=== PATIENT | female | born 1980 | race Caucasian/White ===

== ENCOUNTER 2018-12-06 16:50 | Outpatient (CLI) | payer OTHER ==
[~2018-12-06] VITALS: Ht 165.1 cm; Wt 74.0 kg
[~2018-12-06 16:50] MED LIST: CEPH-443 PO; HYDR-3498 PO; PREN1TAB49 PO
[2018-12-06 17:20] VITALS: Ht 165.1 cm; Wt 74.0 kg
[2018-12-06 17:22] VITALS: BP 96/54; PULSE 87; RESP 20
--- NOTE | 2018-12-06 19:19 | PN ---
Triage Information Date/Time December 06, 2018 Reason for visit: Abd/pelvic pain Weeks of Gestation 23w 2d /Para 8/4 Diabetes: none Hypertention: none Additional information Pt's battery in her car and she had to take the battery out and carry it across a parking lot and she started to have a lot of abdominal pain that didn't resolve so she came in. No bleeding. +FM. PMHx: none. PSHx: none. NKDA Objective Vital Signs Date Temp Pulse Resp B/P (MAP) Pulse Ox O2 O2 Flow FiO2 Time Delivery Rate 12/06/18 98.0 87 20 96/54 (68) Room Air 17:22 Heart Rate: 130's Contractions: None Disposition: Discharge Assessment/Plan A: IUP at 23w 2d. False labor. P: After pt rested and had some food and something to drink she felt much better and was ready for d/c. SARAHI TIAN MD Dec 06, 2018 19:19
--- NOTE | 2018-12-06 19:19 | TRIAGE ---
OB Triage Datetime Report Generated by CPN: 12/06/2018 19:19 Datetime: 12/06/2018 19:01 EGA: 23.2 Datetime: 12/06/2018 18:39 Labor Evaluation Frequency: none Pain Assessment Pain Scale: 0 Pain Goal: 0 Vaginal Exam Membrane Status: Intact Datetime: 12/06/2018 18:04 DTR's/Clonus: DTRs 2+ Headache: Denies Blurred Vision: No RUQ Epigastric Pain: Denies Facial Edema: None Labor Evaluation Frequency: NONE Pattern: Normal: <= 5 Contractions in 10 Minutes Resting Tone [place]: Relaxed Heart Rate FHR Baseline Rate: 135 Monitor Mode: External US FHR Baseline Changes: No Baseline Change Variability: Moderate 6-25 bpm Accelerations: 10X10 Decelerations: None Category: Category I Pain Assessment Pain Scale: 2 Pain Presence: Constant Pain Type: Pressure Pain Location: Abdomen Pain Goal: 0 Datetime: 12/06/2018 17:15 Time of Arrival: 12/06/2018 16:40 EGA: 23.2 Arrived By: Ambulatory Arrived From: Home Chief Complaint: LOWER ABD PAIN,DIZZINESS AND HEADACHE AFTER LIFTING CAR BATTERY THIS AFTERNOON Movement: Present Contractions: NONE Rupture of Membranes: Denies Vaginal Bleeding: None Vaginal Discharge: Denies Recent Sexual Intercouse: Denies Abdominal Trauma: Not Applicable Patient Complaints: Other Provider Notified: DR REICHE Initial Plan: EFM,CALL DR DELSHAD Datetime: 12/06/2018 17:14 Maternal Assessment Level of Consciousness: Fully Conscious DTR's/Clonus: DTRs 2+; No Clonus Headache: Denies Blurred Vision: No Respiratory Effort: Unlabored; Regular Rhythm; Equal Expansion Breath Sounds, Left: Clear and Equal Breath Sounds, Right: Clear and Equal Nausea/Vomiting: Denies RUQ Epigastric Pain: Denies Facial Edema: None Temperature Route: Axillary Fall Risk Assessment History of Falling: (0) No Secondary Diagnosis: (0) No Ambulatory Aid: (0) Bedrest/Nurse Assist IV Therapy: (0) No Gait: (0) Normal/Bedrest/Immobile Mental Status: (0) Oriented to Own Ability Fall Score: 0 Fall Risk Score Definition: No Risk: No action required Datetime: 12/06/2018 16:56 Maternal Assessment Level of Consciousness: Fully Conscious DTR's/Clonus: DTRs 2+ Headache: Denies Blurred Vision: No Nausea/Vomiting: Denies RUQ Epigastric Pain: Denies Facial Edema: None Labor Evaluation Frequency: NONE Pattern: Normal: <= 5 Contractions in 10 Minutes Resting Tone [place]: Relaxed Heart Rate FHR Baseline Rate: 140 Monitor Mode: External US FHR Baseline Changes: No Baseline Change Variability: Moderate 6-25 bpm Accelerations: 15X15 Decelerations: None Category: Category I Pain Assessment Pain Scale: 4 Pain Presence: Constant Pain Type: Pressure Pain Location: Abdomen Pain Goal: 3 Vaginal Exam Membrane Status: Intact
== END 2018-12-06 19:20 | disposition home or self-care (01) ==
LOC: L-D 16:50 → OBT 16:50
PROVIDERS: ATTEND Obstetrics & Gynecology
DX: O47.02 False labor before 37 completed weeks of gestation, second trimester (principal); O09.522 Supervision of elderly multigravida, second trimester; Z3A.23 23 weeks gestation of pregnancy
CPT/HCPCS: G0463